=== PATIENT | male | born 1980 | race Two or more races ===

== ENCOUNTER 2017-05-16 09:17 | Emergency (ER) | payer SELFPAY ==
[~2017-05-16] VITALS: Ht 160 cm; Wt 62.1 kg
[2017-05-16 09:43] VITALS: BP 143/86
[2017-05-16] MEDS ORDERED: ACYCLOVIR400 MG ORAL (11:03)
[2017-05-16] MEDS ORDERED: PREDNISONE20 MG ORAL (11:03)
[2017-05-16] MEDS ORDERED: EYE DROP TEARS15 ML OPHTHALM (11:03)
[2017-05-16 11:22] VITALS: BP 129/76
--- NOTE | 2017-05-16 11:22 | Emergency Room Report ---
History of Present Illness General Chief Complaint: Stroke Symptoms Source: Patient Present Illness HPI Patient presents with complaints of right-sided facial palsy Reports that yesterday he noticed his eyelid was having difficulty closing the right side of his mouth felt abnormal and is to continue to take he was concerning came to the ER Denies any headache denies any change in vision denies any focal weakness denies any neuropathy denies any recent dental procedures denies any headache Allergies: Coded Allergies: No Known Allergies (Unverified , 05/16/17) Patient History Past Medical History: see triage record Pertinent Family History: none Reviewed Nursing Documentation: PMH: Agreed, PSxH: Agreed Nursing Documentation-PMH Hx Diabetes: Yes - pre diabetic Review of Systems All Other Systems: negative except mentioned in HPI Physical Exam Vital Signs Date Time Temp Pulse Resp B/P (MAP) Pulse Ox O2 Delivery O2 Flow Rate FiO2 05/16/17 09:26 98.2 69 16 149/88 97 Room Air Sp02 EP Interpretation: reviewed, normal General Appearance: well appearing, no apparent distress Head: normocephalic, atraumatic Eyes: bilateral eye PERRL, bilateral eye EOMI ENT: other - Right-sided facial palsy including V1 V2 and V3 Neck: full range of motion, supple Respiratory: lungs clear Cardiovascular #1: regular rate, rhythm Gastrointestinal: non tender, soft Musculoskeletal: normal inspection Neurologic: alert, oriented x3 Skin: no rash Lymphatic: no adenopathy Medical Decision Making Diagnostic Impression: Primary Impression: bells palsy ER Course Patient has classic and clinical signs and symptoms in line with Swain's palsy there is no signs of any central process patient is also relatively young without any other risk factors given the neurological exam and the findings I did not feel like CAT scan imaging was warranted patient is treated appropriately and will have initial conservative outpatient trial Last Vital Signs Date Time Temp Pulse Resp B/P (MAP) Pulse Ox O2 Delivery O2 Flow Rate FiO2 05/16/17 09:43 99.1 78 26 143/86 100 Room Air Status: unchanged Disposition: HOME, SELF-CARE Condition: Stable Scripts Peg 400/Hypromellose/Glycerin (EYE DROP TEARS) 15 Ml Drops 4 DROP OPHTHALM TID for 7 Days, ML Prov: YUAN CANNON D.O. 05/16/17 Prednisone* (PREDNISONE*) 20 Mg Tablet 20 MG ORAL DAILY, #8 TAB Prov: YUAN CANNON D.O. 05/16/17 Acyclovir* (ACYCLOVIR*) 400 Mg Tablet 400 MG ORAL FIVE TIMES A DAY for 10 Days, TAB Prov: YUAN CANNON D.O. 05/16/17 Referrals: NON PHYSICIAN (PCP) Patient Instructions: Swain Palsy Additional Instructions: Patient is provided with the discharge instructions notified to follow up with primary doctor in the next 2-3 days otherwise return to the er with any worsening symptoms. Please note that this report is being documented using [employer] technology. This can lead to erroneous entry secondary to incorrect interpretation by the dictating instrument. YUAN CANNON D.O. May 16, 2017 11:22
== END 2017-05-16 11:22 | disposition home or self-care (01) ==
LOC: EMR 09:58
DX: G51.0 Bell's palsy (principal)
CPT/HCPCS: 82962; 99284